=== PATIENT | female | born 1945 | race Caucasian/White ===

== ENCOUNTER 2016-08-08 17:19 | Emergency (ER) | payer OTHER ==
[~2016-08-08 17:19] MED LIST: ACETAMINOPHEN500 M2 PO; ARIMIDEX1 MG PO; ATORVASTATIN CA40 MG PO; BAYER CHEWABLE81 MG PO; CALCIUM 600 +1 EA14 PO; CLARITIN10 M2 PO; CLARITIN10 MG PO; CORTEF10 MG PO; HCTZ PO; HYDROCORTISONE10 MG PO; HYDROCORTISONE5 MG PO; IMDUR PO; LIPITOR40 MG PO; LISINOPRIL PO; LISINOPRIL10 MG PO; LORTAB 7.5-5001 TAB PO; MUCINEX DM1 TAB.SR . PO; PHENERGAN PO; PHENERGAN25 MG PO; PRAVACHOL PO; PREDNISOLONE5 MG PO; PREDNISONE PO; PROTONIX PO; PROVENTIL0.83 MG/ML IH; SYMBICORT INH; TRAMADOL HCL50 M2 PO; VITAMIN D50000 UNIT PO; ZITHROMAX500 MG PO
== END 2016-08-08 18:19 | disposition expired ==
LOC: CED 17:19
DX: I46.9 Cardiac arrest, cause unspecified (principal); I10 Essential (primary) hypertension; E78.5 Hyperlipidemia, unspecified; J44.9 Chronic obstructive pulmonary disease, unspecified
CPT/HCPCS: 92950; 99285; J0171